=== PATIENT | male | born 1985 | race Caucasian/White ===

== ENCOUNTER 2016-11-02 05:43 | Day surgery (SDC) | payer BC ==
[~2016-11-02] VITALS: Ht 172.7 cm; Wt 81.6 kg
[~2016-11-02 05:43] MED LIST: PROPECIA1 MG PO
[2016-11-02 05:52] VITALS: BP 131/69; Ht 172.7 cm; Wt 81.6 kg
[2016-11-02] MEDS ORDERED: HYDROCODONE-APA1 TAB PO (07:56)
--- NOTE | 2016-11-02 08:58 | NUR ---
IV DC WITH CATHER TIP INTACT
--- NOTE | 2016-11-09 12:12 | OP ---
PATIENT NAME: MANDI [facility] MEDICAL RECORD: [id number] :87 LOCATION:[facility] ADMISSION DATE: SURGEON: YON CONNORS MD DATE OF OPERATION: 11/02/2016 PREOPERATIVE DIAGNOSIS: Right dorsal ganglion cyst. POSTOPERATIVE DIAGNOSIS: Right dorsal ganglion cyst. PROCEDURE PERFORMED: Right dorsal ganglion cyst excision. SURGEON: Pete Connors MD. ANESTHESIA: General. CONDITION: The patient tolerated the procedure well and was transferred to the recovery room in stable condition. INDICATIONS: This is a 31-year-old young man who has had a recurrent dorsal ganglion cyst. He wanted to have this removed. We discussed risks, benefits and alternatives including recurrence. He understood and wished to proceed. OPERATIVE REPORT: The patient was taken to the operating room and placed in supine position. General anesthesia was obtained. Right upper extremity was prepped and draped in normal fashion. He received Ancef per protocol. Procedure was begun by making a transverse incision across the center portion of the cyst. This was taken down. The tendons were retracted both medially and laterally. The cyst was removed down to the capsule. I did cauterize this area. I then copiously irrigated. This was sent to pathology. I then closed with interrupted 3-0 Prolene, placed in a volar splint, he was awakened and transferred to the recovery room in stable condition, having tolerated procedure well. TRANSINT:[id number] Voice Confirmation ID: [id number] DOCUMENT ID: [id number] YON CONNORS MD at 1212 CC: [id number] DICTATION DATE: 11/02/16 0754 [employer] DRIVER: 11/02/[address] [facility] 11/02/16 [facility] [address] [id number]
== END 2016-11-02 09:00 | disposition home or self-care (01) ==
LOC: D.OPS 05:43 → D.PAN 07:00 → D.OPS 09:00
DX: M67.431 Ganglion, right wrist (principal)